=== PATIENT | female | born 2000 | race Caucasian/White ===

== ENCOUNTER 2020-04-17 02:12 | Emergency (ER) | payer OTHER ==
[2020-04-17] MEDS ORDERED: Triple Antibiotic Oint 1 GM Packet ONE (02:58)
== END 2020-04-17 03:30 | disposition home or self-care (01) ==
LOC: ERS 02:12
DX: S61.412A Laceration without foreign body of left hand, initial encounter (principal); W18.2XXA Fall in (into) shower or empty bathtub, initial encounter; Y93.E1 Activity, personal bathing and showering; Y92.002 Bathroom of unspecified non-institutional (private) residence as the place of occurrence of the external cause
CPT/HCPCS: 12042